=== PATIENT | female | born 1960 | race Caucasian/White ===

== ENCOUNTER → 2017-04-05 | Outpatient (CLI) | payer OTHER | LOC: FIMAGING 14:19 | PROVIDERS: ATTEND Family Medicine | DX: Z12.31 Encounter for screening mammogram for malignant neoplasm of breast (principal) | CPT/HCPCS: G0202 ==

== ENCOUNTER → 2017-04-12 | Outpatient (CLI) | payer OTHER | LOC: FIMAGING 13:23 | PROVIDERS: ATTEND Family Medicine | DX: Z12.39 Encounter for other screening for malignant neoplasm of breast (principal); R92.8 Other abnormal and inconclusive findings on diagnostic imaging of breast | CPT/HCPCS: G0206 ==

== ENCOUNTER → 2017-04-20 | Day surgery (SDC) | payer OTHER ==
[~2017-04-20] MED LIST: BUPIVACAINE 0.5% 10 ML SDV ONE; LIDO/EPI 1% **Not for Epidural 20 ML MDV ONE; LIDOCAINE 1% 300 MG/30 ML SDV ONE; THROMBIN (BOVINE) 5,000 UNIT VIAL TP ONE
== END | disposition home or self-care (01) ==
LOC: FIMAGING 07:06
PROVIDERS: ATTEND Family Medicine
PROC: 0HBT3ZX Excision of Right Breast, Percutaneous Approach, Diagnostic (ICD-10-PCS; principal; 2017-04-20)
DX: R92.0 Mammographic microcalcification found on diagnostic imaging of breast (principal); N60.91 Unspecified benign mammary dysplasia of right breast
CPT/HCPCS: G0206

== ENCOUNTER → 2018-03-29 | Outpatient (CLI) | payer OTHER | LOC: FIMAGING 12:21 | PROVIDERS: ATTEND Nurse Practitioner Obstetrics & Gynecology | DX: Z12.31 Encounter for screening mammogram for malignant neoplasm of breast (principal) ==